=== PATIENT | male | born 1940 | race Hispanic/Latino ===

== ENCOUNTER 2019-01-09 06:31 | Day surgery (SDC) | payer OTHER ==
[2019-01-05 14:58] VITALS: BP 140/58
[2019-01-05 15:27] LABS: BASOPHILS % (AUTO) 0.5 % (0.0-5.0); EOSINOPHILS % (AUTO) 1.1 % (0.0-8.0); HEMATOCRIT 38.6 % (42-54); LYMPHOCYTES % (AUTO) 28.8 % (21.0-51.0); MEAN CORPUSCULAR HGB CONC 33.3 g/dL (32.0-36.0); MONOCYTES % (AUTO) 8.7 % (3.0-13.0); NEUTROPHILS % (AUTO) 60.9 % (40.0-77.0); PLATELET COUNT (AUTO) 176 K/uL (130-400); RED BLOOD CELL COUNT(AUTO) 4.14 MIL/uL (4.50-6.20); RED CELL DISTRIBUTION WIDTH 14.3 % (11.0-15.5); WHITE BLOOD COUNT (AUTO) 5.4 K/uL (4.8-10.8)
[2019-01-05 15:31] LABS: APPEARANCE,URINE Clear (CLEAR); BILIRUBIN,URINE Negative (NEGATIVE); COLOR,URINE Yellow (YELLOW); GLUCOSE, URINE (UA) Negative (NEGATIVE); KETONES,URINE Negative (NEGATIVE); LEUKOCYTE ESTERASE ,URINE Negative (NEGATIVE); NITRATE,URINE Negative (NEGATIVE); OCCULT BLOOD,URINE Negative (NEGATIVE); PH,URINE 6.5 (5.0-8.0); PROTEIN,URINE Negative (NEGATIVE)
[2019-01-05 15:39] LABS: POTASSIUM 4.4 mmol/L (3.5-5.1)
[2019-01-05 15:56] LABS: INR 0.98 (0.85-1.15); PARTIAL THROMBOPLASTIN TIME 28.2 SEC (26.3-35.5); PROTHROMBIN TIME 10.3 SEC (9.6-11.6)
[~2019-01-09] VITALS: Ht 172.7 cm; Wt 78.3 kg
[2019-01-09] VITALS (8 sets, daily range): BP systolic 106–144; BP diastolic 48–67
[~2019-01-09 06:31] MED LIST: ASPI-1181 PO; LEVO88TA7 PO; SODIUM CHLORIDE 0.9% 500ML 500 ML IV SCH
--- NOTE | 2019-01-09 06:50 | NUR ---
PATIENT ARRIVED PATIENT ARRIVED TO DAY PATIENT ACCOMPANIED BY SPOUSE, LAKHWINDER. PATIENT AAOX3, RESPIRATIONS UNLABORED, VITAL SIGNS STABLE, DENIES ANY PAIN AT THIS TIME. PROCEDURE VERIFIED WITH PATIENT AND SPOUSE, BOTH VERBALIZED UNDERSTANDING. ANSWERED ALL QUESTIONS/CONCERNS. SIDE RAILS UP X2, BED IN LOWEST POSITION, CALL LESTER WITHIN REACH.
[2019-01-09] MEDS ORDERED: SODIUM CHLORIDE 0.9% 1000ML 1,000 ML IV ONE (08:43)
[2019-01-09] MEDS ORDERED: VERAPAMIL HCL 2.5 MG/ML VIAL ONE (10:50)
[2019-01-09] MEDS ORDERED: HEPARIN SODIUM 1000UNIT/ML 10ML VIAL ONE (10:50)
[2019-01-09] MEDS ORDERED: LIDOCAINE HCL 1% 20 ML VIAL ONE (10:50)
[2019-01-09] MEDS ORDERED: NITROGLYCERIN 5 MG/ML 10 ML VIAL IV ONE (10:50)
[2019-01-09] MEDS ORDERED: IOHEXOL-350 50ML VIAL IV ONE (10:50)
--- NOTE | 2019-01-09 10:50 | NUR ---
PATIENT TRANSFERRED PATIENT TAKEN TO US MARKETING DIRECTOR VIA BED BY ENOCH BUENROSTRO. SPOUSE AT BEDSIDE AND INSTRUCTED TO REMAIN IN ROOM IN ORDER TO SPEAK WITH MD AFTER PROCEDURE.
[2019-01-09] MEDS ORDERED: MIDAZOLAM HCL 1 MG/ML 2ML VIAL ONE (10:51)
[2019-01-09] MEDS ORDERED: FENTANYL CITRATE PF 50 MCG/1 ML 2ML VIAL ONE (10:51)
[2019-01-09] MEDS ORDERED: IOHEXOL 350 MG/ML 100ML INFUS..BTL IV ONE (10:51)
[2019-01-09] MEDS ORDERED: SODIUM CHLORIDE 0.9% 1000ML 1,000 ML IV SCH (11:48)
--- NOTE | 2019-01-09 12:15 | NUR ---
PATIENT RETURNED PATIENT BROUGHT BACK FROM [facility]OOK[facility] INSPECTOR BY ENOCH BUENROSTRO. RIGHT RADIAL SITE WITH TR BAND IN PLACE. BRUISING NOTED ABOVE AND BELOW TR BAND AND MARKED WITH MARKER. AREA SOFT TO TOUCH AND NONTENDER. RADIAL PULSES PRESENT BILATERALLY. PATIENT AAOX3, RESPIRATIONS UNLABORED, VITAL SIGNS STABLE,DENIES ANY PAIN AT THIS TIME. SPOUSE AT BEDSIDE.
--- NOTE | 2019-01-09 13:20 | NUR ---
TR BAND DR LOPEZ AT BEDSIDE ASSESSING PATIENT'S RADIAL SITE. TR BAND IN PLACE AND BRUISING NOTED ABOVE AND BELOW RADIAL SITE. 2ML OF AIR REMOVED FROM TR BAND BY DR LOPEZ. NO BLEEDING NOTED, AREA IS SOFT AND NONTENDER.
--- NOTE | 2019-01-09 13:35 | NUR ---
TR BAND TR BAND TO RIGHT RADIAL SITE. RADIAL PULSES PRESENT BILATERALLY AND FINGERS WARM TO TOUCH. 2 ML OF AIR REMOVED FROM TR BAND. NO BLEEDING NOTED, AREA SOFT TO TOUCH AND NONTENDER. PATIENT TOLERATED WELL, DENIES ANY PAIN AT THIS TIME.
--- NOTE | 2019-01-09 14:45 | NUR ---
TR BAND TR BAND TO RIGHT RADIAL SITE. RADIAL PULSES PRESENT BILATERALLY AND FINGERS WARM TO TOUCH. 2 ML OF AIR REMOVED FROM TR BAND. NO BLEEDING NOTED, AREA SOFT TO TOUCH AND NONTENDER. TR BAND REMOVED AND BANDAID APPLIED USING ASEPTIC TECHNIQUE. PATIENT TOLERATED WELL, DENIES ANY PAIN AT THIS TIME.
--- NOTE | 2019-01-09 15:35 | NUR ---
DISCHARGED DISCHARGE INSTRUCTIONS GIVEN TO PATIENT AND PATIENT'S SPOUSE (LAKHWINDER). PROVIDED FOLLOW UP APPOINTMENTS AND INSTRUCTED ON RADIAL SITE CARE AND S/S TO REPORT AND MONITOR FOR INFECTION. PATIENT AND SPOUSE VERBALIZED UNDERSTANDING. ALL QUESTIONS/CONCERNS ANSWERED AND ADDRESSED. RIGHT RADIAL SITE WITH BANDAID IN PLACE DRY AND INTACT. PATIENT DISCHARGED FROM HOSPITAL VIA WHEELCHAIR AND TAKEN TO PRIVATE VEHICLE.
== END 2019-01-09 15:35 | disposition home or self-care (01) ==
LOC: DAH 06:31
PROVIDERS: ATTEND Internal Medicine Cardiovascular Disease
DX: I25.10 Atherosclerotic heart disease of native coronary artery without angina pectoris (principal); I77.810 Thoracic aortic ectasia; R94.39 Abnormal result of other cardiovascular function study; E03.9 Hypothyroidism, unspecified; Z79.01 Long term (current) use of anticoagulants; Z79.899 Other long term (current) drug therapy; Z87.891 Personal history of nicotine dependence
CPT/HCPCS: 36415; 71045; 80048; 81003; 85025; 85610; 85730; 93005; 93458; 93567; A4606; C1769 ×2; C1894; J1644 ×2; J2250; J3010; J3490 ×2; J7030; Q9965 ×2; Q9967; 99156; 99157